=== PATIENT | female | born 2000 | race African-American/Black ===

== ENCOUNTER 2019-05-22 16:01 | Observation (INO) | payer MEDICAID ==
[~2019-05-22] VITALS: Ht 170.2 cm; Wt 61.2 kg
[2019-05-22] MEDS ORDERED: TERBUTALINE SULFATE 1MG/ML VIAL SUBCUT NR ×2 (17:15→17:30)
[2019-05-22] MEDS ORDERED: ONDANSETRON HCL 4MG/2ML INJ IV PRN (17:15)
[2019-05-22] MEDS: LACTATED RINGERS 1,000 ML IV SCH ×2 (17:19→21:20)
[2019-05-22] MEDS ORDERED: LACTATED RINGERS 1,000 ML IV SCH (17:20)
[2019-05-22 17:48] LABS: BASOPHILS % 0.1 % (0.0-2.0); HEMATOCRIT. 29.6 % (36.0-48.0); HEMOGLOBIN. 10.1 g/dL (12.0-16.0); LYMPHOCYTES % 7.5 % (20.0-50.0); MEAN CORPUSCULAR HEMOGLOBIN 30.4 pg (28.0-32.0); MEAN CORPUSCULAR VOLUME 89.3 fL (81.0-99.0); MEAN PLATELET VOLUME 9.1 fl (7.4-10.4); MONOCYTES % 13.4 % (2.0-8.0); PLATELET 208 x1000/uL (130-400); RED BLOOD CELL COUNT 3.32 mill/uL (4.2-5.4); RED CELL DISTRIBUTION WIDTH 12.9 % (11.6-14.6)
[2019-05-22] MEDS ORDERED: AMPICILLIN 2,000 MG in SODIUM CHLORIDE 0.9% 100 ML IV SCH (18:00)
[2019-05-22 19:27] LABS: CLARITY URINE TURBID (CLEAR); COLOR URINE YELLOW (YELLOW); KETONES URINE NEGATIVE (NEGATIVE); LEUKOCYTE ESTERASE URINE 3+ (NEGATIVE); NITRITE URINE POSITIVE (NEGATIVE); OCCULT BLOOD URINE TRACE (NEGATIVE); PROTEIN URINE 1+ (NEGATIVE); SPECIFIC GRAVITY URINE 1.014 (1.005-1.030)
== END 2019-05-22 23:30 | disposition home or self-care (01) ==
LOC: ER 16:32 → 8 EST LDRP 16:36
PROVIDERS: ADMIT Obstetrics & Gynecology; ATTEND Obstetrics & Gynecology
DX: O21.2 Late vomiting of pregnancy (principal); O26.892 Other specified pregnancy related conditions, second trimester; R10.9 Unspecified abdominal pain; Z3A.26 26 weeks gestation of pregnancy
CPT/HCPCS: 36415; 76805; 81003; 82731; 85025; 87077; 87086; 87186; 96361; 96365; 96372; 96375; G0378; J0290; J2405; J3105; J7050

== ENCOUNTER 2019-05-25 08:41 | Observation (INO) | payer MEDICAID ==
[~2019-05-25] VITALS: Ht 167.6 cm; Wt 61.2 kg
== END 2019-05-25 11:24 | disposition home or self-care (01) ==
LOC: 8 EST LDRP 08:41
PROVIDERS: ADMIT Obstetrics & Gynecology; ATTEND Obstetrics & Gynecology
DX: O26.892 Other specified pregnancy related conditions, second trimester (principal); R10.2 Pelvic and perineal pain; O23.43 Unspecified infection of urinary tract in pregnancy, third trimester; Z3A.27 27 weeks gestation of pregnancy
CPT/HCPCS: 99281; G0378